=== PATIENT | male | born 1945 | race Caucasian/White ===

== ENCOUNTER 2021-08-29 11:03 | Inpatient (IN) | payer MEDICARE, MEDICAID ==
[~2021-08-29] VITALS: Ht 180.3 cm; Wt 94.8 kg
[2021-08-29] MEDS ORDERED: DILT240T12 PO (11:25)
[2021-08-29] MEDS ORDERED: METO-357 PO (11:25)
[2021-08-29] MEDS ORDERED: ASPI-1169 PO (11:25)
[2021-08-29] MEDS ORDERED: ATOR80TA PO (11:25)
[2021-08-29] MEDS ORDERED: DIVA-78 PO (11:25)
[2021-08-29] MEDS ORDERED: QUET200T PO (11:25)
[2021-08-29] MEDS ORDERED: RIVA10TA PO (11:25)
[2021-08-29] MEDS ORDERED: TAMS-12 PO (11:25)
[2021-08-29] MEDS ORDERED: ESCI5TAB PO (11:25)
[2021-08-29] MEDS ORDERED: IV NS 0.9% 1,000 ML BAG IV ONE (11:30)
--- NOTE | 2021-08-29 11:40 | NUR ---
Recieved pr 76 yrs male came y emt amblnce from [facility] c/o bliater flank pain and araceli ecchmossis on rt flank awake and alert voding freely yellow colou ua sent to lab
[2021-08-29 11:45] LABS: CALCIUM, SERUM 8.8 mg/dL (8.5-10.1); CARBON DIOXIDE 27 mmol/L (21-32); CHLORIDE 102 mmol/L (98-107); CREATININE 1.1 mg/dL (0.6-1.3); GLUCOSE 105 mg/dL (74-106); POTASSIUM 4.1 mmol/L (3.5-5.1); SODIUM SERUM 137 mmol/L (136-145); UREA NITROGEN, BLOOD 16 mg/dL (7-18)
[2021-08-29 11:50] LABS: BASOPHILS # (AUTO) 0.1 K/uL (0.0-0.2); BASOPHILS % (AUTO) 0.5 % (0.0-2.0); EOSINOPHILS % (AUTO) 0.4 % (0.0-6.0); HEMATOCRIT 40 % (39-51); HEMOGLOBIN 13.5 g/dL (13.5-17.5); LYMPHOCYTES # (AUTO) 1.2 K/uL (0.8-4.8); MEAN CORPUSCULAR HGB CONC 34 g/dl (31.0-36.0); MEAN CORPUSCULAR VOLUME 95 fL (80-96); MONOCYTES # (AUTO) 0.6 K/uL (0.1-1.30); MONOCYTES % (AUTO) 3.7 % (2.0-12.0); NEUTROPHILS # (AUTO) 13.5 K/uL (1.8-8.9); NEUTROPHILS % (AUTO) 87.4 % (43.0-81.0); PLATELET COUNT (AUTO) 281 K/uL (150-450); RED BLOOD CELL COUNT(AUTO) 4.21 MIL/uL (4.5-6.0); WHITE BLOOD COUNT (AUTO) 15.5 K/uL (4.3-11.0)
--- NOTE | 2021-08-29 11:50 | NUR ---
pt heard stick unable to inserted iv only under US BLOOD DROW and sent to lab i
[2021-08-29 11:51] LABS: ALANINE AMINOTRANSFERASE 30 U/L (12-78); ALBUMIN 3.2 g/dL (3.4-5.0); ALKALINE PHOSPHATASE 88 U/L (46-116); ASPARTATE AMINOTRANSFERASE 37 U/L (15-37); BILIRUBIN,DIRECT 0.3 mg/dL (0.0-0.2); LIPASE 45 U/L (73-393); TOTAL PROTEIN, SERUM 6.6 g/dL (6.4-8.2)
--- NOTE | 2021-08-29 12:00 | NUR ---
INserted ango catheter under VAN US BY VICTORINO PUTNAM ON RT UPPER ARM NO BLOOD BACK UP put able to flashed ns
[2021-08-29] MEDS ORDERED: IV NS 0.9% 250 ML IV ONE (12:16)
[2021-08-29] MEDS ORDERED: IOHEXOL-350 100 ML VIAL IV ONE (12:16)
[2021-08-29] MEDS ORDERED: CT SWABBABLE VALVE TRANS SET 1 EA INFUS.SET MC ONE (12:16)
[2021-08-29] MEDS ORDERED: MORPHINE SULFATE INJ 4 MG/ML DISP.SYRIN ONE ×2 (12:24→16:49)
[2021-08-29] MEDS ORDERED: MORPHINE SULFATE INJ 2 MG/ML DISP.SYRIN IV ONE ×2 (12:30→16:30)
[2021-08-29 12:31] LABS: BILIRUBIN,URINE NEGATIVE (NEGATIVE); COLOR,URINE DARK YELLOW (YELLOW); LEUKOCYTE ESTERASE ,URINE NEGATIVE (NEGATIVE); NITRITE, URINE NEGATIVE (NEGATIVE); PH,URINE 7.5 (5.0-8.0); PROTEIN,URINE 100 mg/dl (NEGATIVE); UGLUCOSE NEGATIVE (NEGATIVE)
[2021-08-29 12:47] LABS: BACTERIA,URINE None seen /HPF (None Seen); RBC,URINE 0-2 /HPF (0-2); SQUAMOUS EPITHELIAL CELL,UR Rare /HPF (None Seen); URINE AMORPHOUS PHOSPHATES Moderate /HPF (None Seen); WBC,URINE 0-2 /HPF (0-3)
--- NOTE | 2021-08-29 13:04 | NUR ---
CALLED NURSING SUP AND REQUESTED MIDLINE FOR THE PT
--- NOTE | 2021-08-29 13:11 | NUR ---
MIDLINE NURSE ETA 30MIN
--- NOTE | 2021-08-29 13:50 | NUR ---
Nurse inserted MIDLINE ON LT ARM ABLE TO ASPIRATE BLOOD PATENT AND INFUSED WILL
--- NOTE | 2021-08-29 13:56 | NUR ---
COVID TEST COLLECTED AND SENT
[2021-08-29] MEDS ORDERED: DILTIAZEM HCL 50 MG IV IV ONE (14:30)
--- NOTE | 2021-08-29 14:30 | NUR ---
TO CTA VIA TORO simms vs
--- NOTE | 2021-08-29 15:25 | NUR ---
randy for tlmetery bed pt condition no jo dr. irvin order give cardizem if hr above 110b/min hold for now
--- NOTE | 2021-08-29 16:48 | NUR ---
c/o genralized pain 12/03 mophine given
[2021-08-29] MEDS ORDERED: DILTIAZEM HCL 25 MG IV ONE (16:53)
[2021-08-29] MEDS ORDERED: ESCITALOPRAM OXALATE (10 MG) 10 MG TABLET PO ONE (17:00)
--- NOTE | 2021-08-29 17:10 | NUR ---
hr 117b/min cardizem 15mg ivslow push given wating for room
--- NOTE | 2021-08-29 17:50 | NUR ---
ROOM 312-1
[2021-08-29] MEDS ORDERED: ESCITALOPRAM OXALATE (10 MG) 10 MG TABLET ONE (18:45)
--- NOTE | 2021-08-29 19:44 | NUR ---
HAND OFF TO OCTOBER RN
--- NOTE | 2021-08-29 19:55 | NUR ---
RECEIVED REPORT FROM [employer] FOR CUONG
--- NOTE | 2021-08-29 20:27 | NUR ---
REPORT GIVEN BENTLEY PUTNAM FOR CUONG
[2021-08-29 21:12] VITALS: BP_SYST 162; BP_SYST 167; BP_DIAS 107
--- NOTE | 2021-08-29 21:12 | NUR ---
RN RECEIVING NOTE PATIENT RECEIVED TO 3W VIA GURNEY FROM ER. PATIENT IS FULLY AMBULATORY. PATIENT AMBULATED TO HIS BED. A/OX4. NO S/S OF DISTRESS, SATTING WELL AT 96% ON RM AIR. CAMMY MIDLINE INTACT AND PATENT. PATIENT HAS NOTED BRUISING ON R-FLANK. PATIENT ORIENTED TO THE UNIT, CALL GILMORE GIVEN AND INSTRUCTED ON ITS USE. BELONGINGS WERE ACCOUNTED FOR AND LOGGED INTO CHART. SAFETY MEASURES IN PLACE: BED AT LOWEST POSITION, LOCKED, RAILS UP X2, CALL GILMORE WITHIN REACH. WILL CONTINUE TO MONITOR PATIENT.
[2021-08-29] MEDS: ATORVASTATIN 40 MG TABLET PO SCH (21:58)
[2021-08-29] MEDS: QUETIAPINE FUMARATE 100 MG TABLET PO SCH (21:58)
[2021-08-29] MEDS: DIVALPROEX SODIUM 500 MG TABLET.DR PO SCH (21:58)
[2021-08-29] MEDS ORDERED: HYDROCODONE/APAP 5/325MG TABLET PO PRN (22:00)
[2021-08-29] MEDS ORDERED: HYDROCODONE/APAP 10/325MG TABLET PO PRN (22:30)
[2021-08-29] MEDS ORDERED: ONDANSETRON HCL/PF 4 MG/2 ML VIAL IVP PRN (22:30)
[2021-08-29] MEDS ORDERED: ACETAMINOPHEN 325 MG TABLET PO PRN (22:30)
[2021-08-29] MEDS ORDERED: Z GUARD REMEDY 4 OZ OINT TP PRN (22:30)
[2021-08-29] MEDS: MORPHINE SULFATE INJ 4 MG/ML DISP.SYRIN IV PRN (22:32)
[2021-08-29 22:50] LABS: HEMOGLOBIN 12.5 g/dL (13.5-17.5)
[2021-08-30] VITALS: BP 124/86
[2021-08-30] MEDS: IV NS 0.9% 1,000 ML IV PRN ×2 (02:33→13:33)
[2021-08-30] MEDS: MORPHINE SULFATE INJ 4 MG/ML DISP.SYRIN IV PRN ×5 (03:42→21:12)
[2021-08-30 04:00] VITALS: BP 137/97
[2021-08-30 07:11] LABS: BASOPHILS # (AUTO) 0.1 K/uL (0.0-0.2); BASOPHILS % (AUTO) 0.6 % (0.0-2.0); HEMATOCRIT 38 % (39-51); HEMOGLOBIN 12.8 g/dL (13.5-17.5); LYMPHOCYTES # (AUTO) 2.3 K/uL (0.8-4.8); LYMPHOCYTES % (AUTO) 19.8 % (20.0-44.0); MEAN CORPUSCULAR HGB CONC 34 g/dl (31.0-36.0); MEAN CORPUSCULAR VOLUME 97 fL (80-96); MONOCYTES # (AUTO) 0.5 K/uL (0.1-1.30); MONOCYTES % (AUTO) 4.7 % (2.0-12.0); NEUTROPHILS # (AUTO) 8.4 K/uL (1.8-8.9); NEUTROPHILS % (AUTO) 72.9 % (43.0-81.0); PLATELET COUNT (AUTO) 230 K/uL (150-450); RED BLOOD CELL COUNT(AUTO) 3.89 MIL/uL (4.5-6.0); WHITE BLOOD COUNT (AUTO) 11.5 K/uL (4.3-11.0)
--- NOTE | 2021-08-30 07:27 | NUR ---
RN CLOSING NOTE PATIENT ASLEEP IN BED. A/OX4. NO S/S OF DISTRESS, BREATHING ON RM AIR W/O DIFFICULTY. CAMMY MIDLINE #18 INTACT AND PATENT W/ NS 75ML/HR. SAFETY MEASURES IN PLACE: BED AT LOWEST POSITION, LOCKED, RAILS UP X3, CALL GILMORE WITHIN REACH. REPORT ENDORSED TO AND ACKNOWLEDGED BY RNRISHI.
--- NOTE | 2021-08-30 07:30 | NUR ---
RN NOTES RECEIVED PATIENT IN BED,AWAKE, ALERT AND ORIENTED X 4, ABLE TO MAKE NEEDS KNOWN. ON ROOM AIR TOLERATING WELL, NO S/SX OF ACUTE DISTRESS NOTED. IV ACCESS ON CAMMY ML G#18 ONGOING NS X 75 CC/HR, INFUSING WELL, NO S/SX OF INFILTRATION NOTED. NO COMPLAINTS OF PAIN AT THIS TIME. NOTED WITH BRUISES ON RIGHT FLANK AND LEFT GROIN BRUISES. SAFETY PRECAUTIONS IN PLACE: BED ON LOWEST LOCKED POSITION, SIDE RAILS UP X 2, CALL LIGHT WITHIN EASY REACH. WILL CONTINUE TO MONITOR PATIENT ACCORDINGLY.
[2021-08-30] MEDS: PANTOPRAZOLE 40 MG TABLET.DR PO SCH (07:48)
[2021-08-30 08:00] VITALS: BP 159/86
[2021-08-30] MEDS: DIVALPROEX SODIUM 500 MG TABLET.DR PO SCH ×2 (09:12→21:04)
[2021-08-30] MEDS: TAMSULOSIN 0.4 MG CAP.SR.24H PO SCH (09:12)
[2021-08-30] MEDS: DILTIAZEM HCL CD 240 MG PO SCH (09:13)
[2021-08-30] MEDS: METOPROLOL SUCCINATE 50 MG TAB.SR.24H PO SCH (09:13)
--- NOTE | 2021-08-30 09:58 | NUR ---
RN NOTES PATIENT HOOKED TO TELE ORDERED, NOTED WITH A-FIB. EKG RELAYED TO DR. HOLLOWAY. NO NEW ORDERS GIVEN.
[2021-08-30 10:25] LABS: ALBUMIN 2.5 g/dL (3.4-5.0); BILIRUBIN,TOTAL 1.2 mg/dL (0.2-1.0); CALCIUM, SERUM 7.8 mg/dL (8.5-10.1); CREATININE 0.9 mg/dL (0.6-1.3); MAGNESIUM 1.8 mg/dL (1.8-2.4); PHOSPHORUS 3.2 mg/dL (2.5-4.9); POTASSIUM 3.8 mmol/L (3.5-5.1); TOTAL PROTEIN, SERUM 5.3 g/dL (6.4-8.2)
[2021-08-30 12:51] LABS: THYROID STIMULATING HORMONE 5.334 uIU/mL (0.358-3.74)
[2021-08-30 13:22] LABS: HEMOGLOBIN 13.1 g/dL (13.5-17.5)
[2021-08-30 16:00] VITALS: BP_SYST 126; BP_DIAS 84; BP_DIAS 89
--- NOTE | 2021-08-30 18:31 | NUR ---
RN CLOSING NOTES PATIENT IN BED,AWAKE, ALERT AND ORIENTED X 4, ABLE TO MAKE NEEDS KNOWN. ON ROOM AIR TOLERATING WELL, NO S/SX OF ACUTE DISTRESS NOTED. IV ACCESS ON CAMMY ML G#18 ONGOING NS X 75 CC/HR, INFUSING WELL, NO S/SX OF INFILTRATION NOTED. NO COMPLAINTS OF PAIN AT THIS TIME. NOTED WITH BRUISES ON RIGHT FLANK AND LEFT GROIN BRUISES. ON TELE READING SHOWING A-FIB BORDERLINE CONTROLLED HR 90-LOW 100'S. SAFETY PRECAUTIONS IN PLACE: BED ON LOWEST LOCKED POSITION, SIDE RAILS UP X 2, CALL LIGHT WITHIN EASY REACH. WILL CONTINUE TO MONITOR PATIENT ACCORDINGLY. Addendum: 08/30/21 at 1834 by RISHI CEDILLO RN ADD: ENDORSE TO ONCOMING SHIFT FOR CUONG.
--- NOTE | 2021-08-30 19:15 | NUR ---
RN NOTE PT AWAKE IN BED, A/OX4. HE DENIES PAIN AT THIS TIME. RESPIRATIONS EVEN/UNLABORED. IV SITE: CAMMY MIDLINE #18G INTACT/PATENT, RUNNING NS @75ML/HR. PT ABLE TO AMBULATE TO BR. USES URINAL TO VOID. PT IN NO ACUTE DISTRESS. SAFETY MEASURES IN PLACE. WILL CONT TO MONITOR.
[2021-08-30 20:00] VITALS: BP 136/93
[2021-08-30] MEDS: QUETIAPINE FUMARATE 100 MG TABLET PO SCH (21:04)
[2021-08-30] MEDS: ATORVASTATIN 40 MG TABLET PO SCH (21:04)
--- NOTE | 2021-08-30 21:41 | NUR ---
RN NOTE PT C/O DRY COUGHING AND REQUESTING FOR BREATHING TX, SAYS HE USES ALBUTEROL AT HOME. REPORTED TO ON-CALL, SAYRA Zamarripa, HE WILL INPUT ORDERS. PT INFORMED.
[2021-08-30] MEDS: ALBUTEROL FS 2.5 MG/3 ML VIAL.NEB NEB PRN (21:55)
--- NOTE | 2021-08-30 22:16 | NUR ---
RT CALLED TO GIVE PT PRN NEB TX, TX GIVEN AND PT SHRUTI WELL. NO ADVERSE REACTION. RN AWARE.
[2021-08-31] VITALS: BP 124/66
[2021-08-31] MEDS: MORPHINE SULFATE INJ 4 MG/ML DISP.SYRIN IV PRN ×4 (01:08→13:32)
[2021-08-31] MEDS: IV NS 0.9% 1,000 ML IV PRN (03:49)
[2021-08-31] MEDS: PANTOPRAZOLE 40 MG TABLET.DR PO SCH (06:23)
[2021-08-31 06:38] LABS: BASOPHILS % (AUTO) 0.5 % (0.0-2.0); EOSINOPHILS % (AUTO) 3.7 % (0.0-6.0); HEMATOCRIT 38 % (39-51); HEMOGLOBIN 12.8 g/dL (13.5-17.5); LYMPHOCYTES # (AUTO) 2.1 K/uL (0.8-4.8); MEAN CORPUSCULAR HGB CONC 34 g/dl (31.0-36.0); MEAN CORPUSCULAR VOLUME 97 fL (80-96); MONOCYTES # (AUTO) 0.4 K/uL (0.1-1.30); MONOCYTES % (AUTO) 4.5 % (2.0-12.0); NEUTROPHILS # (AUTO) 6.2 K/uL (1.8-8.9); NEUTROPHILS % (AUTO) 68.3 % (43.0-81.0); PLATELET COUNT (AUTO) 220 K/uL (150-450); RED BLOOD CELL COUNT(AUTO) 3.91 MIL/uL (4.5-6.0); WHITE BLOOD COUNT (AUTO) 9.1 K/uL (4.3-11.0)
[2021-08-31 06:56] LABS: CALCIUM, SERUM 8.3 mg/dL (8.5-10.1); CREATININE 0.9 mg/dL (0.6-1.3); MAGNESIUM 1.9 mg/dL (1.8-2.4); POTASSIUM 4.4 mmol/L (3.5-5.1)
--- NOTE | 2021-08-31 07:11 | NUR ---
RN NOTE PT RESTING IN BED, EASILY AROUSABLE TO STIMULI. A/OX4. NO C/O PAIN AT THIS TIME. NO CHEST PAIN. RESPIRATIONS EVEN/UNLABORED. IV SITE: CAMMY MIDLINE #18G INTACT/PATENT, RUNNING NS @75ML/HR. PT IN NO ACUTE DISTRESS. SAFETY MEASURES MAINTAINED. ENDORSED TO NEXT SHIFT NURSE.
--- NOTE | 2021-08-31 07:23 | NUR ---
FIRST GRADE TEACHER OPENING NOTE RECEIVED PT AWAKE IN BED. A/OX4. ABLE TO MAKE NEEDS KNOWN. ON RA, TOLERATING WELL. BREATHING EVEN AND UNLABORED. NOT IN ANY SIGN OF RESPIRATORY DISTRESS. ON TELE MONITOR WITH CURRENT READING OF CONTROLLED AFIB, HR 78. NO COMPLAIN OF ANY CARDIAC DISCOMFORT OR DISTRESS AT THIS TIME. IV ACCESS IN CAMMY ML G #18 INTACT AND PATENT WITH NS RUNNING AT 75ML/HR. SAFETY MEASURES IN PLACE: BED IN LOWEST AND LOCKED POSITION, SIDE RAILS UPX2, CALL LIGHT WITHIN REACH. WILL CONTINUE TO MONITOR PT AND WITH PLAN OF CARE.
[2021-08-31] MEDS: ALBUTEROL FS 2.5 MG/3 ML VIAL.NEB NEB PRN ×2 (07:51→15:28)
[2021-08-31 08:45] VITALS: BP 144/82
[2021-08-31] MEDS: TAMSULOSIN 0.4 MG CAP.SR.24H PO SCH (08:51)
[2021-08-31] MEDS: DILTIAZEM HCL CD 240 MG PO SCH (08:52)
[2021-08-31] MEDS: METOPROLOL SUCCINATE 50 MG TAB.SR.24H PO SCH (08:52)
[2021-08-31] MEDS: DIVALPROEX SODIUM 500 MG TABLET.DR PO SCH (08:54)
[2021-08-31 13:11] VITALS: BP 158/96
--- NOTE | 2021-08-31 16:35 | NUR ---
MILL TENDER NOTES PT DISCHARGED TO [facility], [facility] IN STABLE CONDITION. PT A/O X4. ABLE TO MAKE NEEDS KNOWN. ON RA, TOLERATING WELL WITH SPO2 AT 98%. BREATHING EVEN AND UNLABORED. NOT IN ANY SIGN OF RESPIRATORY DISTRESS. V/S TAKEN, STABLE, AND RECORDED. PT REFUSED BODY CHECK AND PHOTOS TO BE TAKEN. ALL BELONGINGS ACCOUNTED FOR VERBALLY BUT REFUSED TO SIGN VALUABLES DOCUMENT. ALL DISCHARGED INSTRUCTIONS AND PATIENT TEACHING PROVIDED AND GIVEN TO PT. PT VERBALIZED UNDERSTANDING AND SIGNED DISCHARGED DOCUMENTS. IV ACCESS IN CAMMY MIDLINE G #18 REMOVED WITH NO ACTIVE BLEEDING NOTED. DRY PRESSURE DRESSING APPLIED AT SITE. PT LEFT THE UNIT VIA GURNEY PICKED UP BY 2 LICENSED PROFESSIONAL COUNSELOR. MD AND CHARGED NURSE AWARE OF DISCHARGE.
[2021-09-07] MEDS ORDERED: FINA5TAB3 PO (10:28)
[2021-09-07] MEDS ORDERED: RIVA10TA PO (10:28)
[2021-09-07] MEDS ORDERED: ALBU8.5H8 INH (10:30)
[2021-09-07] MEDS ORDERED: FLUT1BLS IH (10:30)
== END 2021-08-31 16:40 | DRG 563 ==
LOC: ER 11:54 → TELE 17:54 → MED 22:44 → TELE 08-30 09:19
PROVIDERS: ADMIT Nurse Practitioner Acute Care; ATTEND Nurse Practitioner Acute Care
PROC: 05HA33Z Insertion of Infusion Device into Left Brachial Vein, Percutaneous Approach (ICD-10-PCS; principal; 2021-08-29)
DX: S39.011A Strain of muscle, fascia and tendon of abdomen, initial encounter (principal); D68.59 Other primary thrombophilia; D62 Acute posthemorrhagic anemia; I48.91 Unspecified atrial fibrillation; R23.3 Spontaneous ecchymoses; Z20.822 Contact with and (suspected) exposure to COVID-19; I10 Essential (primary) hypertension; E78.5 Hyperlipidemia, unspecified; I25.10 Atherosclerotic heart disease of native coronary artery without angina pectoris; Z95.5 Presence of coronary angioplasty implant and graft; N40.0 Benign prostatic hyperplasia without lower urinary tract symptoms; I25.2 Old myocardial infarction; Z88.0 Allergy status to penicillin; Z98.890 Other specified postprocedural states; Z79.01 Long term (current) use of anticoagulants; Z79.899 Other long term (current) drug therapy; Z79.82 Long term (current) use of aspirin; F29 Unspecified psychosis not due to a substance or known physiological condition; X58.XXXA Exposure to other specified factors, initial encounter; Y92.9 Unspecified place or not applicable
CPT/HCPCS: 36410; 36415; 71045-TC; 80048-TC; 80053-TC; 80061-TC; 80076-TC; 81001; 82728-TC; 83540-TC; 83690-TC; 83735-TC; 84100-TC; 84439-TC; 84443-TC; 84484-TC; 85025-TC; 85027-TC; 85730-TC; 87081-TC; 93307-TC; 97116-TC; 97530-TC; C9803; G0378; J2270; J3490; J7030; J7050; Q9967

== ENCOUNTER 2021-09-02 15:27 | Inpatient (IN) | payer MEDICARE, MEDICAID ==
[~2021-09-02] VITALS: Ht 180.3 cm; Wt 88.5 kg
--- NOTE | 2021-09-02 00:45 | NUR ---
RESULTS TECHNICIAN NOTES NOTIFIED PO MA NP ON C/O PAIN ON BUE. ORDERED MORPHINE SO4 1MG PRN Q4H AND STAT CTA. NOTED AND CARRIED OUT.
[~2021-09-02 15:27] MED LIST: ASPI-1169 PO; ATOR80TA PO; DILT240T12 PO; DIVA-78 PO; ESCI5TAB PO; METO-357 PO; QUET200T PO; RIVA10TA PO; TAMS-12 PO
--- NOTE | 2021-09-02 15:57 | NUR ---
RAYRAY ADAME FROM [facility] FOR GEN WEAKNESS AND PAIN/THROBBING IN BILATERAL ARMS. STAFF FOUND PT HOLDING A BEER PER EMS. +EDEMA ADN ERYTHEMA ON BILATERAL ARMS. AAOX4, BREATHING EVEN AND UNLABORED, PULSES 2+ BILATERALLY. CMS INTACT. WILL CONTINUE TO MONITOR.
--- NOTE | 2021-09-02 17:04 | NUR ---
PT AMBULATED TO RESTROOM AN RETURNED TO BED. VS STABLE
--- NOTE | 2021-09-02 17:39 | NUR ---
IV LINE IS ESTABLISHED, BLOOD SPECIMEN COLLECTED AND SENT TO THE LAB. THE LINE IS SALINE LOCKED.
[2021-09-02 18:12] LABS: BASOPHILS % (AUTO) 0.6 % (0.0-2.0); EOSINOPHILS % (AUTO) 1.4 % (0.0-6.0); HEMATOCRIT 38 % (39-51); HEMOGLOBIN 12.8 g/dL (13.5-17.5); LYMPHOCYTES # (AUTO) 2.2 K/uL (0.8-4.8); MEAN CORPUSCULAR HGB CONC 34 g/dl (31.0-36.0); MEAN CORPUSCULAR VOLUME 96 fL (80-96); MONOCYTES # (AUTO) 0.5 K/uL (0.1-1.30); MONOCYTES % (AUTO) 5.2 % (2.0-12.0); NEUTROPHILS % (AUTO) 67.8 % (43.0-81.0); PLATELET COUNT (AUTO) 244 K/uL (150-450); RED BLOOD CELL COUNT(AUTO) 3.93 MIL/uL (4.5-6.0); WHITE BLOOD COUNT (AUTO) 8.8 K/uL (4.3-11.0)
--- NOTE | 2021-09-02 18:26 | NUR ---
URINE SAMPLE OBTAINED AND SENT TO LAB
--- NOTE | 2021-09-02 18:26 | NUR ---
PT REFUSED FREY. GIVEN BEDSIDE URINAL INSTEAD. 300 ML URINE OUTPUT
[2021-09-02] MEDS ORDERED: MORPHINE SULFATE INJ 2 MG/ML DISP.SYRIN IV ONE (18:30)
[2021-09-02] MEDS ORDERED: MORPHINE SULFATE INJ 4 MG/ML DISP.SYRIN ONE (18:35)
[2021-09-02 19:23] LABS: BILIRUBIN,URINE NEGATIVE (NEGATIVE); COLOR,URINE YELLOW (YELLOW); LEUKOCYTE ESTERASE ,URINE NEGATIVE (NEGATIVE); NITRITE, URINE NEGATIVE (NEGATIVE); PROTEIN,URINE NEGATIVE (NEGATIVE); UGLUCOSE NEGATIVE (NEGATIVE)
[2021-09-02 19:25] LABS: ALANINE AMINOTRANSFERASE 18 U/L (12-78); ALBUMIN 2.9 g/dL (3.4-5.0); ALKALINE PHOSPHATASE 78 U/L (46-116); ASPARTATE AMINOTRANSFERASE 25 U/L (15-37); BILIRUBIN,DIRECT 0.2 mg/dL (0.0-0.2); BILIRUBIN,TOTAL 0.7 mg/dL (0.2-1.0); CALCIUM, SERUM 8.3 mg/dL (8.5-10.1); CARBON DIOXIDE 30 mmol/L (21-32); CHLORIDE 102 mmol/L (98-107); CREATININE 1.1 mg/dL (0.6-1.3); GLUCOSE 94 mg/dL (74-106); POTASSIUM 4.1 mmol/L (3.5-5.1); SODIUM SERUM 142 mmol/L (136-145); TOTAL PROTEIN, SERUM 6.1 g/dL (6.4-8.2); UREA NITROGEN, BLOOD 11 mg/dL (7-18)
[2021-09-02] MEDS ORDERED: FUROSEMIDE 40 MG/4 ML VIAL ONE (19:40)
[2021-09-02 19:41] LABS: BACTERIA,URINE None seen /HPF (None Seen); RBC,URINE 0-2 /HPF (0-2); SQUAMOUS EPITHELIAL CELL,UR Rare /HPF (None Seen); WBC,URINE 0-2 /HPF (0-3)
--- NOTE | 2021-09-02 19:46 | NUR ---
COVID ANTIGEN SWAB COLLECTED AND SENT TO LAB
[2021-09-02] MEDS ORDERED: FUROSEMIDE 40 MG/4 ML VIAL IV ONE (20:00)
--- NOTE | 2021-09-02 20:03 | NUR ---
URINE OUTPUT 700ML VIA URINAL
--- NOTE | 2021-09-02 20:44 | NUR ---
epic paged per dr zavala.
--- NOTE | 2021-09-02 21:54 | NUR ---
URINE OUTPUT 1400ML VIA URINAL.
--- NOTE | 2021-09-02 23:07 | NUR ---
REPORT GIVEN TO RN MANDIE
--- NOTE | 2021-09-02 23:13 | NUR ---
PT TRANSFERRING TO 3W VIA ACLS PROTOCOL. VSS. ALL BELONGINGS WITH PT.
--- NOTE | 2021-09-02 23:15 | NUR ---
OPEN HEARTH FURNACE OPERATORCUTTER HEAD SHARPENER NOTES RECEIVED PATIENT FROM ED VIA RDEVILS ELBOW. A/O X4, AMBULATORY. SMELLS LIKE ALCOHOL. NO APPARENT DISTRESS NOTED. MILD NOTED. PLACED ON O2 AT 2LPM VIA NC. AGITATED AND IRRITABLE. C/O PAIN 8/10 ON HIS BILATERAL UPPER EXTREMITIES. ON TELE MONITOR READING CONTROLLED A-FIB AT 83 BPM. HAS RIGHT ANTECUBITAL IV ACCESS #20G. NO S/S OF INFILTRATION NOTED. BELONGINGS PLACED IN BAG AND STORED IN DRAWER. SAFETY PRECAUTIONS IN PLACED. WILL CONTINUE PLAN OF CARE.
[2021-09-02 23:17] VITALS: BP 126/87
[2021-09-02] MEDS: MORPHINE SULFATE INJ 2 MG/ML DISP.SYRIN IV PRN (23:59)
--- NOTE | 2021-09-03 00:05 | NUR ---
CLIENT SUPPORT CONSULTANT NOTES PATIENT C/O PAIN 8/10 ON HIS BUE, V/S WNL. ADMINISTERED PRN MORPHINE SO4. TOLERATED WELL.
[2021-09-03] MEDS ORDERED: IOHEXOL-350 100 ML VIAL IV ONE (00:19)
[2021-09-03] MEDS ORDERED: IV NS 0.9% 250 ML IV ONE (00:19)
[2021-09-03] MEDS ORDERED: CT SWABBABLE VALVE TRANS SET 1 EA INFUS.SET MC ONE (00:20)
[2021-09-03 03:12] LABS: BASOPHILS # (AUTO) 0.1 K/uL (0.0-0.2); BASOPHILS % (AUTO) 1.1 % (0.0-2.0); EOSINOPHILS % (AUTO) 2.9 % (0.0-6.0); HEMATOCRIT 41 % (39-51); HEMOGLOBIN 13.8 g/dL (13.5-17.5); LYMPHOCYTES # (AUTO) 1.8 K/uL (0.8-4.8); LYMPHOCYTES % (AUTO) 22.6 % (20.0-44.0); MEAN CORPUSCULAR HGB CONC 34 g/dl (31.0-36.0); MEAN CORPUSCULAR VOLUME 96 fL (80-96); MONOCYTES # (AUTO) 0.6 K/uL (0.1-1.30); MONOCYTES % (AUTO) 7.2 % (2.0-12.0); NEUTROPHILS # (AUTO) 5.2 K/uL (1.8-8.9); NEUTROPHILS % (AUTO) 66.2 % (43.0-81.0); PLATELET COUNT (AUTO) 245 K/uL (150-450); RED BLOOD CELL COUNT(AUTO) 4.26 MIL/uL (4.5-6.0); WHITE BLOOD COUNT (AUTO) 7.9 K/uL (4.3-11.0)
[2021-09-03 03:24] LABS: ALANINE AMINOTRANSFERASE 25 U/L (12-78); ALBUMIN 2.9 g/dL (3.4-5.0); ALKALINE PHOSPHATASE 86 U/L (46-116); ASPARTATE AMINOTRANSFERASE 22 U/L (15-37); BILIRUBIN,TOTAL 0.6 mg/dL (0.2-1.0); CALCIUM, SERUM 8.6 mg/dL (8.5-10.1); CARBON DIOXIDE 38 mmol/L (21-32); CHLORIDE 101 mmol/L (98-107); CREATININE 1.2 mg/dL (0.6-1.3); GLUCOSE 130 mg/dL (74-106); MAGNESIUM 1.8 mg/dL (1.8-2.4); PHOSPHORUS 3.6 mg/dL (2.5-4.9); SODIUM SERUM 144 mmol/L (136-145); TOTAL PROTEIN, SERUM 6.2 g/dL (6.4-8.2); UREA NITROGEN, BLOOD 15 mg/dL (7-18)
[2021-09-03 03:35] LABS: THYROID STIMULATING HORMONE 2.163 uIU/mL (0.358-3.74)
[2021-09-03 04:00] VITALS: BP 163/99
--- NOTE | 2021-09-03 05:00 | NUR ---
SCIENCE LIAISON NOTES PATIENT C/O PAIN 8/10 ON HIS BUE. PRN MORPHINE SULFATE ADMINISTERED, TOLERATED WELL.
[2021-09-03] MEDS: MORPHINE SULFATE INJ 2 MG/ML DISP.SYRIN IV PRN ×5 (05:13→23:33)
[2021-09-03 06:52] LABS: EOSINOPHILS % (MANUAL) 3 % (0-4); LYMPHOCYTES % (MANUAL) 11 % (16-48); METAMYELOCYTES % 1 % (0-0); MONOCYTES % (MANUAL) 7 % (0-11.0); NEUTROPHILS % (MANUAL) 78 (42-76)
--- NOTE | 2021-09-03 07:30 | NUR ---
YARD ASSOCIATE CLOSING NOTES PATIENT LYING IN BED WITH EYES CLOSED. EASY TO AROUSE. A/O X4. BREATHING EVEN AND UNLABORED. CURRENTLY ON ROOM AIR, TOLERATING WELL. ON TELE MONITOR READING CONTROLLED A-FIB AT 86 BPM. HAS RIGHT ANTECUBITAL IV ACCESS #20G. INTACT, PATENT AND FLUSHING. SKIN ASSESSMENT DONE AND PHOTOS TAKEN. WOUND CONSULT ORDERED. SAFETY MEASURES IN PLACE: BED LOW AND LOCKED, SIDE RAILS UP X2, CALL LIGHT WITHIN REACH. WILL ENDORSE TO AM NURSE FOR CONTINUITY OF CARE.
--- NOTE | 2021-09-03 08:05 | NUR ---
RN OPENING NOTE PATIENT RECEIVED IN BED, AO X 4. ABLE TO RESPONDS ALL STIMULI. IN NO ACUTE DISTRESS NOTED. RESPIRATORY EVEN AND UNLABORED ON RA AND OXYGEN NEEDED. SKIN IS WARM TO TOUCH, KEEP CLEAN/DRY. KEPT ELEVATED HOB FOR ENSURE AIRWAY AND ASPIRATION PRECAUTION, ALSO LOWEST POSITION OF THE BED, S/R UP X 2, BED ALARM IS ON AT ALL THE TIMES. ALL SAFETY PRECAUTION APPLIED. CALL LIGHT WITHIN REACH, WILL CONTINUE TO MONITOR.
--- NOTE | 2021-09-03 08:36 | NUR ---
WOUND CARE CONSULT: PT PRESENTS WITH PAINFUL CRUSTED WOUND TO RT HAND AND DRY LESION TO SIDE OF NOSE, PRESENT ON ADMISSION. DR BALDWIN NOTIFIED OF SURGICAL CONSULT REQUEST. PT IS INDEPENDENT WITH BED MOBILITY AND IS CONTINENT AT THIS TIME.
[2021-09-03] MEDS ORDERED: METOPROLOL SUCCINATE 50 MG TAB.SR.24H PO SCH (09:00)
[2021-09-03] MEDS ORDERED: ASPIRIN 81 MG TAB.CHEW PO SCH (09:00)
[2021-09-03] MEDS: DIVALPROEX SODIUM 500 MG TABLET.DR PO SCH ×2 (09:23→22:18)
[2021-09-03] MEDS: ESCITALOPRAM OXALATE (10 MG) 10 MG TABLET PO SCH (09:23)
[2021-09-03] MEDS: DILTIAZEM HCL CD 240 MG PO SCH (09:23)
[2021-09-03] MEDS: TAMSULOSIN 0.4 MG CAP.SR.24H PO SCH (09:23)
[2021-09-03 09:41] LABS: ABG BASE EXCESS 6.9 mmol/L; ABG PCO2 46.6 mmHg (35.0-45.0); ABG PH 7.454 (7.350-7.450); ABG PO2 75.7 mmHg (75.0-100.0); COHb 1.1 % (0.5-1.5); MetHb 0.3 % (0.0-1.5); O2Hb 93.5 % (94.0-97.0); SITE, ABG Right Radial
--- NOTE | 2021-09-03 10:20 | NUR ---
PATIENT DONE ABG, AND INFORMED THE RESULT. Addendum: 09/03/21 at 1021 by NAYANA MENJIVAR RN ERROR
--- NOTE | 2021-09-03 10:21 | NUR ---
PATIENT DONE ABG, AND INFORMED MD THE RESULT.
[2021-09-03] MEDS: IPRATROPIUM NEB FS 0.5 MG/2.5 ML AMPUL.NEB NEB SCH ×3 (11:40→19:30)
[2021-09-03] MEDS: ALBUTEROL HALF STRENGTH 1.25 MG/3 ML VIAL.NEB NEB SCH ×3 (11:40→19:30)
[2021-09-03] MEDS: methylPREDNISolone SOD SUCC 125 MG/2ML VIAL IV SCH ×2 (12:16→22:16)
[2021-09-03] MEDS ORDERED: RIVAROXABAN 10 MG TABLET PO SCH (17:00)
--- NOTE | 2021-09-03 17:27 | NUR ---
PATIENT RECEIVED ON ROOM AIR WITH SATURATIONS AT 97-99%. Q4 HHN ALBUTEROL & ATROVENT TX TOLERATING WELL WITH NO ADVERSE REACTION NOTED. WHEEZING BREATH SOUNDS NOTED. PATIENT STATED THAT HE FELT BETTER AFTER BREATHING TXS.
--- NOTE | 2021-09-03 18:00 | NUR ---
RN CLOSING NOTE PATIENT IN BED, IN NO ACUTE DISTRESS OBSERVED. SKIN IS WARM TO TOUCH KEEP CLEAN/DRY. RESPIRATORY EVEN AND UNLABORED ON ROOM AIR. KEPT HOB FOR ENSURE AIRWAY AND ASPIRATION PRECAUTION, AND LOWEST POSITION OF THE BED FOR SAFETY. CALL LIGHT WITHIN REACH, WILL ENDORSE TO HEATING FIXTURE TENDER.
[2021-09-03 20:00] VITALS: BP 156/84
--- NOTE | 2021-09-03 20:30 | NUR ---
CLINICAL REHABILITATION AIDE OPENING NOTES: RECEIVED PATIENT AWAKE IN BED, BED IN LOW POSITION, CALL LIGHTS WITHIN REACH, NO COMPLAIN OF PAIN AND DISCOMFORT AT THIS TIME, ON ROOM AIR SATUIRATING WELL, PATIENT IS A/OX4 ABLE TO MAKE NEEDS KNOWN, WITH IV LINE AT RAC#20SL, PATIENT KEPT CLEAN AND DRY ALL NEEDS MET WILL CONTINUE TO MONITOR
[2021-09-03] MEDS: ATORVASTATIN 40 MG TABLET PO SCH (22:18)
[2021-09-03] MEDS: QUETIAPINE FUMARATE 100 MG TABLET PO SCH (22:18)
[2021-09-04] VITALS: BP 127/75
[2021-09-04] MEDS: IPRATROPIUM NEB FS 0.5 MG/2.5 ML AMPUL.NEB NEB SCH ×7 (00:04→23:30)
[2021-09-04] MEDS: ALBUTEROL HALF STRENGTH 1.25 MG/3 ML VIAL.NEB NEB SCH ×7 (00:04→23:30)
[2021-09-04 04:00] VITALS: BP 112/68
[2021-09-04] MEDS: methylPREDNISolone SOD SUCC 125 MG/2ML VIAL IV SCH ×2 (04:50→13:15)
[2021-09-04] MEDS: MORPHINE SULFATE INJ 2 MG/ML DISP.SYRIN IV PRN ×2 (06:12→13:16)
--- NOTE | 2021-09-04 06:45 | NUR ---
PAROLE DIRECTOR CLOSING NOTES: PATIENT SLEEP IN BED COMFORTABLY, AROUSABLE TO VERBAL STIMULI, BED IN LOW POSITION, CALL LIGHTS WITHIN REACH, NO COMPLAIN OF PAIN AND DISCOMFORT AT THIS TIME, PATIENT ON TELE MONITOR -AFIB 86, ON O2 INHALATION AT 2LPM SATURATING WELL , WITH IV LINE AT RAC@20SL, PATIENT KEPT CLEAN AND DRY ALL NEEDS MET ENDORSE TO INCOMING SHIFT.
[2021-09-04 07:21] LABS: BASOPHILS % (AUTO) 0.3 % (0.0-2.0); HEMATOCRIT 44 % (39-51); HEMOGLOBIN 14.9 g/dL (13.5-17.5); LYMPHOCYTES # (AUTO) 0.9 K/uL (0.8-4.8); LYMPHOCYTES % (AUTO) 8.1 % (20.0-44.0); MEAN CORPUSCULAR HGB CONC 34 g/dl (31.0-36.0); MEAN CORPUSCULAR VOLUME 96 fL (80-96); MONOCYTES # (AUTO) 0.1 K/uL (0.1-1.30); NEUTROPHILS % (AUTO) 90.6 % (43.0-81.0); PLATELET COUNT (AUTO) 271 K/uL (150-450); RED BLOOD CELL COUNT(AUTO) 4.61 MIL/uL (4.5-6.0); WHITE BLOOD COUNT (AUTO) 11.1 K/uL (4.3-11.0)
[2021-09-04 07:40] LABS: CALCIUM, SERUM 9.1 mg/dL (8.5-10.1); CARBON DIOXIDE 32 mmol/L (21-32); CHLORIDE 100 mmol/L (98-107); GLUCOSE 140 mg/dL (74-106); POTASSIUM 3.7 mmol/L (3.5-5.1); SODIUM SERUM 141 mmol/L (136-145); UREA NITROGEN, BLOOD 21 mg/dL (7-18)
--- NOTE | 2021-09-04 08:00 | NUR ---
RN OPENING NOTE PATIENT RECEIVED IN BED, AO X 4. ABLE TO RESPONDS ALL STIMULI. IN NO ACUTE DISTRESS NOTED. RESPIRATORY EVEN AND UNLABORED ON ROOM AIR. SKIN IS WARM TO TOUCH, KEEP CLEAN/DRY. KEPT ELEVATED HOB FOR ENSURE AIRWAY AND ASPIRATION PRECAUTION, ALSO LOWEST POSITION OF THE BED, S/R UP X 3, BED ALARM IS ON AT ALL THE TIMES. ALL SAFETY PRECAUTION APPLIED. CALL LIGHT WITHIN REACH, WILL CONTINUE TO MONITOR.
[2021-09-04] MEDS: DIVALPROEX SODIUM 500 MG TABLET.DR PO SCH ×2 (09:13→21:48)
[2021-09-04] MEDS: DILTIAZEM HCL CD 240 MG PO SCH (09:14)
[2021-09-04] MEDS: TAMSULOSIN 0.4 MG CAP.SR.24H PO SCH (09:22)
[2021-09-04] MEDS: ESCITALOPRAM OXALATE (10 MG) 10 MG TABLET PO SCH (09:23)
--- NOTE | 2021-09-04 18:42 | NUR ---
RN CLOSING NOTE PATIENT IN BED, IN NO ACUTE DISTRESS OBSERVED. SKIN IS WARM TO TOUCH KEEP CLEAN/DRY. NOTICED LEAKING IV SITE BUT PATIENT IS HARD STICK, INFORMED DR. RODRIGUEZ, NEW ORDER D/C MORPHINE AND SOLU-MEDROL, AND NORCO 5MG. RESPIRATORY EVEN AND UNLABORED ON ROOM AIR. KEPT HOB FOR ENSURE AIRWAY AND ASPIRATION PRECAUTION, AND LOWEST POSITION OF THE BED FOR SAFETY. CALL LIGHT WITHIN REACH, WILL ENDORSE TO COLLAR TURNER OPERATOR.
[2021-09-04] MEDS: HYDROCODONE/APAP 5/325MG TABLET PO PRN ×2 (18:53→23:02)
--- NOTE | 2021-09-04 19:56 | NUR ---
BOAT DECKHAND OPENING NOTES: RECEIVED PATIENT AWAKE IN BED, BED IN LOW POSITION, CALL LIGHTS WITHIN REACH, NO COMPLAIN OF PAIN AND DISCOMFORT AT THIS TIME, PATIENT ON ROOM AIR SATURATING WELL, ON TELE MONITORING-A FIB-93 CONTROLLED, NO SYMPTOMS WAS OBSERVED, PATIENT HAS NO IV LINE AM DR WAS MADE AWARE. PER CN, PATIENT KEPT CLEAN AND DRY ALL NEEDS MET WILL CONTINUE TO MONITOR.
[2021-09-04 20:00] VITALS: BP 134/90
[2021-09-04] MEDS: ATORVASTATIN 40 MG TABLET PO SCH (21:48)
[2021-09-04] MEDS: QUETIAPINE FUMARATE 100 MG TABLET PO SCH (21:49)
[2021-09-05] VITALS: BP 147/82
[2021-09-05 00:05] VITALS: BP 147/82
[2021-09-05] MEDS: IPRATROPIUM NEB FS 0.5 MG/2.5 ML AMPUL.NEB NEB SCH ×6 (03:30→23:30)
[2021-09-05] MEDS: ALBUTEROL HALF STRENGTH 1.25 MG/3 ML VIAL.NEB NEB SCH ×6 (03:30→23:30)
[2021-09-05 04:00] VITALS: BP 139/78
[2021-09-05] MEDS: HYDROCODONE/APAP 5/325MG TABLET PO PRN ×4 (05:38→20:38)
--- NOTE | 2021-09-05 06:32 | NUR ---
HOT BOX OPERATOR CLOSING NOTES: PATIENT SLEEP IN BED COMFORTABLY AROUSABLE TO VERBAL STIMULI, BED IN LOW POSITION, CALL LIGHTS WITHIN REACH, NO COMPLAIN OF PAIN AND DISCOMFORT AT THIS TIME, ON ROOM AIR SATURATING WELL, PATIENT IS A/OX4 AMBULATORY, ABLE TO MAKE NEEDS KNOWN, NO IV LINE MD WAS AWARE, PATIENT KEPT CLEAN AND DRY ALL NEEDS MET ENDORSE TO INCOMING SHIFT.
[2021-09-05 07:06] LABS: HEMATOCRIT 40 % (39-51); HEMOGLOBIN 13.3 g/dL (13.5-17.5); LYMPHOCYTES # (AUTO) 0.9 K/uL (0.8-4.8); LYMPHOCYTES % (AUTO) 4.7 % (20.0-44.0); MEAN CORPUSCULAR HGB CONC 33 g/dl (31.0-36.0); MEAN CORPUSCULAR VOLUME 96 fL (80-96); MONOCYTES # (AUTO) 0.7 K/uL (0.1-1.30); MONOCYTES % (AUTO) 3.4 % (2.0-12.0); NEUTROPHILS # (AUTO) 17.4 K/uL (1.8-8.9); NEUTROPHILS % (AUTO) 91.9 % (43.0-81.0); PLATELET COUNT (AUTO) 259 K/uL (150-450); RED BLOOD CELL COUNT(AUTO) 4.14 MIL/uL (4.5-6.0)
[2021-09-05 07:12] LABS: CALCIUM, SERUM 8.8 mg/dL (8.5-10.1); CARBON DIOXIDE 29 mmol/L (21-32); CHLORIDE 102 mmol/L (98-107); GLUCOSE 109 mg/dL (74-106); SODIUM SERUM 140 mmol/L (136-145); UREA NITROGEN, BLOOD 29 mg/dL (7-18)
--- NOTE | 2021-09-05 08:11 | NUR ---
PROPERTY DEVELOPER OPENING NOTES: RECEIVED PATIENT AWAKE IN BED, BED IN LOW POSITION, CALL LIGHTS WITHIN REACH, NO COMPLAINT OF PAIN AND DISCOMFORT AT THIS TIME, PATIENT ON ROOM AIR SATURATING WELL, ON TELE MONITORING-A FIB-90 CONTROLLED, NO SYMPTOMS WAS OBSERVED,, PATIENT KEPT CLEAN AND DRY ALL NEEDS MET WILL CONTINUE TO MONITOR./ ASSIST
[2021-09-05] MEDS: DIVALPROEX SODIUM 500 MG TABLET.DR PO SCH ×2 (08:59→20:38)
[2021-09-05] MEDS: ESCITALOPRAM OXALATE (10 MG) 10 MG TABLET PO SCH (08:59)
[2021-09-05] MEDS: TAMSULOSIN 0.4 MG CAP.SR.24H PO SCH ×2 (08:59→21:28)
[2021-09-05] MEDS: DILTIAZEM HCL CD 240 MG PO SCH (09:02)
[2021-09-05] MEDS: FLUTICASONE/VILANTEROL 1 EACH BLST.W.DEV IH SCH (16:09)
--- NOTE | 2021-09-05 19:30 | NUR ---
MENTAL HEALTH PRACTITIONER OPENING NOTE RECEIVED PATIENT RESTING IN BED, EYES CLOSED, EASILY AROUSABLE. A/O X4 AND ABLE TO MAKE NEEDS KNOWN. PT ON O2 @ 2LPM VIA NC, TOLERATING WELL. NO SOB OR S/S OF RESPIRATORY DISTRESS NOTED. BREATHING EVEN AND UNLABORED. ON EXTERNAL PHYSICAL TRAINER READING A FIB 79 BPM. SAFETY PRECAUTIONS IN PLACE. BED IN LOWEST LOCKED POSITION, HOB ELEVATED, SIDE RAILS UP X2, AND CALL LIGHT AND TABLE WITHIN REACH. ALL NEEDS MET AT THIS TIME.
[2021-09-05 20:00] VITALS: BP 139/79
--- NOTE | 2021-09-05 20:38 | NUR ---
RN NOTE PT COMPLAINED OF GENERALIZED PAIN 11/02. ADMINISTERED NORCO 5-325 MG FOR MODERATE PAIN ORDERED. MADE COMFORTABLE IN BED. SNACKS GIVEN REQUESTED. ALL NEEDS MET AT THIS TIME.
[2021-09-05] MEDS: ATORVASTATIN 40 MG TABLET PO SCH (21:28)
[2021-09-05] MEDS: QUETIAPINE FUMARATE 100 MG TABLET PO SCH (21:29)
[2021-09-06] VITALS: BP 136/70
[2021-09-06] MEDS: HYDROCODONE/APAP 5/325MG TABLET PO PRN ×4 (02:40→20:24)
--- NOTE | 2021-09-06 02:40 | NUR ---
RN NOTE PT COMPLAINED OF BILATERAL ARM PAIN 11/02. ADMINISTERED NORCO 5-325 MG FOR MODERATE PAIN ORDERED. MADE COMFORTABLE IN BED. ALL NEEDS MET AT THIS TIME.
[2021-09-06] MEDS: IPRATROPIUM NEB FS 0.5 MG/2.5 ML AMPUL.NEB NEB SCH ×7 (03:00→23:49)
[2021-09-06] MEDS: ALBUTEROL HALF STRENGTH 1.25 MG/3 ML VIAL.NEB NEB SCH ×7 (03:00→23:49)
[2021-09-06 04:00] VITALS: BP 114/65
--- NOTE | 2021-09-06 06:41 | NUR ---
RN NOTE PT COMPLAINED OF BILATERAL ARM PAIN 10/03. ADMINISTERED NORCO 5-325 MG FOR MODERATE PAIN ORDERED. MADE COMFORTABLE IN BED. ALL NEEDS MET AT THIS TIME.
--- NOTE | 2021-09-06 06:53 | NUR ---
BELLY ROLLER CLOSING NOTE PATIENT RESTING IN BED, EYES CLOSED, EASILY AROUSABLE. A/O X4 AND ABLE TO MAKE NEEDS KNOWN. PT STABLE ON ROOM AIR, O2 SAT 97%. NO SOB OR S/S OF RESPIRATORY DISTRESS NOTED. BREATHING EVEN AND UNLABORED. ON EXTERNAL ALUMINUM SHINGLE ROOFER READING A FIB 75 BPM. SAFETY PRECAUTIONS IN PLACE AT ALL TIMES. BED IN LOWEST LOCKED POSITION, HOB ELEVATED, SIDE RAILS UP X2, AND CALL LIGHT AND TABLE WITHIN REACH. ALL NEEDS MET AT THIS TIME AND WILL ENDORSE TO ONCOMING SHIFT FOR CUONG.
[2021-09-06 08:01] VITALS: BP 126/70
[2021-09-06] MEDS: FINASTERIDE (5 MG) 5 MG TABLET PO SCH (11:27)
[2021-09-06] MEDS: DIVALPROEX SODIUM 500 MG TABLET.DR PO SCH ×2 (11:27→21:25)
[2021-09-06] MEDS: ESCITALOPRAM OXALATE (10 MG) 10 MG TABLET PO SCH (11:28)
[2021-09-06] MEDS: TAMSULOSIN 0.4 MG CAP.SR.24H PO SCH ×2 (11:28→21:25)
[2021-09-06] MEDS: DILTIAZEM HCL CD 240 MG PO SCH (11:28)
[2021-09-06] MEDS: FLUTICASONE/VILANTEROL 1 EACH BLST.W.DEV IH SCH (11:40)
[2021-09-06 15:40] VITALS: BP 133/86
--- NOTE | 2021-09-06 18:00 | NUR ---
received pt. in am alert and oriented x4,no complaints offered,then medicated for headache with norco at [address] reaves in to see pt.
--- NOTE | 2021-09-06 19:30 | NUR ---
PANEL ASSEMBLER OPENING NOTE RECEIVED PATIENT IN BED. A/OX3-4. NO S/S OF APPARENT DISTRESS ON ROOM AIR. NO C/O PAIN AT THIS TIME. TELE MONITOR READING A-FIB CONTROLLED. NO IV ACCESS ENDORSED TO ME BY MORNING SHIFT RN, CAILIN. ORIENTED WITH THE USE OF CALL LIGHT. SAFETY IN PLACE. WILL CONTINUE WITH PLAN OF CARE FOR PATIENT.
[2021-09-06 20:00] VITALS: BP 143/85
[2021-09-06] MEDS: ATORVASTATIN 40 MG TABLET PO SCH (21:25)
[2021-09-06] MEDS: QUETIAPINE FUMARATE 100 MG TABLET PO SCH (21:26)
[2021-09-07] VITALS: BP 139/75
[2021-09-07] MEDS: HYDROCODONE/APAP 5/325MG TABLET PO PRN ×3 (00:26→08:33)
[2021-09-07] MEDS: IPRATROPIUM NEB FS 0.5 MG/2.5 ML AMPUL.NEB NEB SCH ×2 (03:22→08:25)
[2021-09-07] MEDS: ALBUTEROL HALF STRENGTH 1.25 MG/3 ML VIAL.NEB NEB SCH ×2 (03:22→08:25)
[2021-09-07 04:00] VITALS: BP 135/70
--- NOTE | 2021-09-07 06:50 | NUR ---
VIDEO PLAYER MECHANIC CLOSING NOTE PATIENT IN BED A/OX4. NO S/S OF APPARENT DISTRESS ON ROOM AIR. PAIN MANAGED WITH MEDICATIONS. TELE MONITOR READING A-FIB CONTROLLED. NO IV ACCESS. ALL NEEDS ATTENDED. ALL SCHEDULED MEDICATIONS ADMINISTERED. WILL ENDORSE TO Pio BOUCHER FOR CONTINUITY OF CARE.
--- NOTE | 2021-09-07 07:30 | NUR ---
ORDAINED MINISTER OPENING NOTES: RECEIVED PT IN BED ASLEEP AND EASILY AWAKE BY STIMULI. A/O X4 ABLE TO VERBALIZED NEEDS. NO SOB/NO CARDIAC DISTRESS NOTED, ON ROOM AIR TOLERATED WELL. NO IV ACCESS, MD AWARE.ON TELE MONITOR: AFIB CONTROLLED HR 76BPM. NO COMPLAIN OF PAIN AT THIS TIME. MAINTAINED SAFETY PRECAUTIONARY MEASURE: BED IN LOWEST POSITON AND LOCKED, WITH BED ALARM, SIDE RAILS UP X2, CALL LIGHT IN EASY REACH FOR HELP.
[2021-09-07] MEDS: ESCITALOPRAM OXALATE (10 MG) 10 MG TABLET PO SCH (08:34)
[2021-09-07 08:35] VITALS: BP 122/76
[2021-09-07] MEDS: DIVALPROEX SODIUM 500 MG TABLET.DR PO SCH (08:35)
[2021-09-07] MEDS: FINASTERIDE (5 MG) 5 MG TABLET PO SCH (08:35)
[2021-09-07] MEDS: DILTIAZEM HCL CD 240 MG PO SCH (08:35)
[2021-09-07] MEDS: TAMSULOSIN 0.4 MG CAP.SR.24H PO SCH (08:36)
[2021-09-07] MEDS: FLUTICASONE/VILANTEROL 1 EACH BLST.W.DEV IH SCH (08:36)
[2021-09-07] MEDS ORDERED: FINA5TAB3 PO (10:28)
[2021-09-07] MEDS ORDERED: RIVA10TA PO (10:28)
[2021-09-07] MEDS ORDERED: ALBU8.5H8 INH (10:30)
[2021-09-07] MEDS ORDERED: FLUT1BLS IH (10:30)
--- NOTE | 2021-09-07 12:26 | NUR ---
RN NOTES CALLED TEL # [phone] AND REPORT/DISCHARGE INSTRUCTIONS GIVEN TO ABELINO ABDALLA OF [facility].
--- NOTE | 2021-09-07 12:46 | NUR ---
RN DC NOTES: PATIENT DC TO [facility] ACCOMPANIED BY 2 ANIME ARTIST FROM [facility] VIA REGULAR GURNEY. REPORT AND DC PAPERS GIVEN TO MR LEON (EMT). PATIENT A/O X 4 ABLE TO VERBALIZED NEEDS,NO COMPLAIN OF ANY PAIN, NO SOB OR CARDIAC DISTRESS AND ON ROOM AIR AND TOLERATING WELL. NO IV ACCESS.
[2021-09-07] MEDS ORDERED: RIVAROXABAN 10 MG TABLET PO SCH (17:00)
== END 2021-09-07 12:50 | DRG 191 ==
LOC: ER 15:32 → TELE 22:56
PROVIDERS: ADMIT Registered Nurse; ATTEND Nurse Practitioner Acute Care
PROC: 0JB10ZX Excision of Face Subcutaneous Tissue and Fascia, Open Approach, Diagnostic (ICD-10-PCS; principal; 2021-09-05)
DX: J44.1 Chronic obstructive pulmonary disease with (acute) exacerbation (principal); E44.0 Moderate protein-calorie malnutrition; N13.8 Other obstructive and reflux uropathy; N13.2 Hydronephrosis with renal and ureteral calculous obstruction; F10.239 Alcohol dependence with withdrawal, unspecified; M79.621 Pain in right upper arm; I11.0 Hypertensive heart disease with heart failure; E88.09 Other disorders of plasma-protein metabolism, not elsewhere classified; D63.8 Anemia in other chronic diseases classified elsewhere; I50.9 Heart failure, unspecified; I48.91 Unspecified atrial fibrillation; R60.9 Edema, unspecified; M79.622 Pain in left upper arm; N40.1 Benign prostatic hyperplasia with lower urinary tract symptoms; Z20.822 Contact with and (suspected) exposure to COVID-19; E78.5 Hyperlipidemia, unspecified; Z98.890 Other specified postprocedural states; Z88.0 Allergy status to penicillin; Z79.01 Long term (current) use of anticoagulants; Z79.899 Other long term (current) drug therapy; Z79.82 Long term (current) use of aspirin; I25.10 Atherosclerotic heart disease of native coronary artery without angina pectoris; F32.A Depression, unspecified; N32.89 Other specified disorders of bladder; N40.0 Benign prostatic hyperplasia without lower urinary tract symptoms; Z86.16 Personal history of COVID-19; Z90.49 Acquired absence of other specified parts of digestive tract; Z98.61 Coronary angioplasty status; R51.9 Headache, unspecified; F10.229 Alcohol dependence with intoxication, unspecified; Y90.9 Presence of alcohol in blood, level not specified; G47.33 Obstructive sleep apnea (adult) (pediatric); K40.90 Unilateral inguinal hernia, without obstruction or gangrene, not specified as recurrent; C44.301 Unspecified malignant neoplasm of skin of nose; Z87.19 Personal history of other diseases of the digestive system; F17.200 Nicotine dependence, unspecified, uncomplicated
CPT/HCPCS: 36415; 36600; 70450-TC; 71045-TC; 80048-TC; 80053-TC; 80076-TC; 81001; 82803-TC; 83735-TC; 83880; 84100-TC; 84443-TC; 84484-TC; 85025-TC; 85730-TC; 87040-TC; 87081-TC; 87086-TC; 94799-TC; 97116-TC; 97530-TC; C9803; G0378; J1940; J2270; J2930; J7050; Q9967

== ENCOUNTER 2021-09-28 11:36 | Emergency (ER) | payer MEDICARE, OTHER ==
[~2021-09-28] VITALS: Ht 180.3 cm; Wt 93.0 kg
[~2021-09-28 11:36] MED LIST changes: +ALBU8.5H8 INH; +FINA5TAB3 PO; +FLUT1BLS IH; -METO-357 PO
--- NOTE | 2021-09-28 11:42 | NUR ---
MONCHO FROM [facility] C/O PAIN WHEN URINATING STARTED THIS MORNING. TO ER BED 9, HOOKED TO MONITOR, CHANGED TO HOSP GOWN, WARM BLANKET PROVIDED. PATIENT AAO x 4. PLACED ON 2LPM O2 VIA NC. AWAITING MD [place]
[2021-09-28] MEDS ORDERED: LEVA15HF4 IH (11:47)
[2021-09-28] MEDS ORDERED: ASPI-1420 PO (11:47)
[2021-09-28] MEDS ORDERED: FLUT1BLS IH (11:47)
[2021-09-28] MEDS ORDERED: NITR0.4T48 SL (11:47)
[2021-09-28] MEDS ORDERED: FINA5TAB11 PO (11:47)
[2021-09-28] MEDS ORDERED: ALBU8.5H8 IH (11:47)
[2021-09-28] MEDS ORDERED: RIVA10TA PO (11:47)
[2021-09-28] MEDS ORDERED: METO25TA3 PO (11:47)
--- NOTE | 2021-09-28 11:47 | NUR ---
DR PEDROZA AT BEDSIDE
--- NOTE | 2021-09-28 11:56 | NUR ---
URINE SAMPLE COLECTED AND SENT TO LAB
[2021-09-28] MEDS ORDERED: IPRATROPIUM NEB FS 0.5 MG/2.5 ML AMPUL.NEB NEB ONE (12:00)
[2021-09-28] MEDS ORDERED: ALBUTEROL FS 2.5 MG/3 ML VIAL.NEB NEB ONE (12:00)
[2021-09-28] MEDS ORDERED: HYDROCODONE/APAP 5/325MG TABLET PO ONE (12:00)
[2021-09-28] MEDS ORDERED: HYDROCODONE/APAP 5/325MG TABLET ONE ×2 (12:01→13:33)
--- NOTE | 2021-09-28 12:02 | NUR ---
ELECTRIC TRACK SWITCH MAINTAINER AT BEDSIDE
[2021-09-28] MEDS ORDERED: IPRATROPIUM NEB FS 0.5 MG/2.5 ML AMPUL.NEB ONE (12:10)
[2021-09-28] MEDS ORDERED: ALBUTEROL FS 2.5 MG/3 ML VIAL.NEB ONE (12:10)
[2021-09-28 12:16] LABS: BILIRUBIN,URINE NEGATIVE (NEGATIVE); COLOR,URINE YELLOW (YELLOW); LEUKOCYTE ESTERASE ,URINE NEGATIVE (NEGATIVE); NITRITE, URINE NEGATIVE (NEGATIVE); PROTEIN,URINE 30 mg/dl (NEGATIVE); UGLUCOSE NEGATIVE (NEGATIVE)
--- NOTE | 2021-09-28 12:16 | NUR ---
ONGOING BREATHING TREATMENT
[2021-09-28 12:30] LABS: BACTERIA,URINE Few /HPF (None Seen); RBC,URINE 0-2 /HPF (0-2)
[2021-09-28] MEDS ORDERED: CIPROFLOXACIN HCL 250 MG TABLET PO ONE (13:00)
[2021-09-28] MEDS ORDERED: CIPR500T5 PO (13:03)
[2021-09-28] MEDS ORDERED: methylPREDNISolone SOD SUCC 125 MG/2ML VIAL ONE (13:09)
[2021-09-28] MEDS ORDERED: PHEN-704 PO (13:11)
[2021-09-28] MEDS ORDERED: LIDOCAINE 2% JEL UROJET 10 ML MM ONE ×2 (13:12→13:30)
--- NOTE | 2021-09-28 13:17 | NUR ---
[facility] TRANSPORT ETA 1 HOUR VIA [facility].
[2021-09-28] MEDS ORDERED: methylPREDNISolone SOD SUCC 125 MG/2ML VIAL IM ONE (13:30)
[2021-09-28] MEDS ORDERED: CIPROFLOXACIN HCL 500 MG TABLET ONE (13:33)
--- NOTE | 2021-09-28 13:49 | NUR ---
[facility] UNIT 350 PICKED UP PATIENT IN STABLE CONDITION. WILL BR BROUGHT BACK TO [facility]. ALL BELONGINGS WITH THE PATIENT
[2021-09-28 13:54] VITALS: BP 136/81
== END 2021-09-28 13:55 | disposition home or self-care (01) ==
LOC: ER 11:46
DX: N39.0 Urinary tract infection, site not specified (principal); R30.0 Dysuria; I10 Essential (primary) hypertension; Z90.49 Acquired absence of other specified parts of digestive tract; Z88.8 Allergy status to other drugs, medicaments and biological substances; Z79.899 Other long term (current) drug therapy
CPT/HCPCS: 51702; 71045; 81001; 87086; 94640; 96372; 99284; J2930; J3490